=== PATIENT | female | born 1980 | race Caucasian/White ===

== ENCOUNTER → 2023-11-24 12:11 | Outpatient (REF) | payer BC, SELFPAY ==
[2023-11-24 13:02] LABS: Urine Albumin Trace (Neg - Trace); Urine Bilirubin Negative (Negative); Urine Character Clear (Clear); Urine Color Yellow; Urine Glucose Negative (Negative); Urine Ketone Negative (Negative); Urine Leukocyte Negative (Negative); Urine Nitrite Negative (Negative); Urine Occult Blood Negative (Negative); Urine Urobilinogen Negative (Neg - 1+)
[2023-11-24 13:03] LABS: % Basophils 0.7 % (0-2); % Eosinophils 3.4 % (0-6); % Immature Granulocytes 0.3 % (0-0.5); % Lymphocytes 26.2 % (20.5-51.1); % Monocytes 6.4 % (1.7-9.3); Absolute Basophils 0.1 10^3/uL (0-0.2); Absolute Eosinophils 0.2 10^3/uL (0-0.7); Absolute Lymphocytes 1.8 10^3/uL (1.2-3.4); Absolute Monocytes 0.5 10^3/uL (0.1-0.6); Absolute Neutrophils 4.4 10^3/uL (1.4-6.5); Hematocrit 39.6 % (37.0-47.0); Hemoglobin 14.3 g/dL (12.0-16.0); Mean Corp Hgb Conc. 36.1 g/dL (33.0-37.0); Mean Corpuscular Volume 91.5 fL (81.0-99.0); Mean Platelet Volume 10.2 fL (7.4-10.4); Nucleated Red Blood Cells % 0 %; Platelet Count 197 10^3/uL (130-400); Red Blood Cell Count 4.33 10^6/uL (4.20-5.40); Red Cell Dist. Width 11.9 % (11.5-14.5)
[2023-11-24 13:23] LABS: ALT (SGPT) 13 U/L (0-35); AST (SGOT) 21 U/L (14-36); Albumin 4.6 g/dl (3.5-5.0); Alkaline Phosphatase 54 U/L (38-126); Blood Urea Nitrogen 11 mg/dl (7-17); Calcium 9.2 mg/dl (8.4-10.2); Carbon Dioxide 23 mmol/L (22-30); Chloride 102 mmol/L (98-107); Glucose 91 mg/dl (70-99); HDL Cholesterol 52 mg/dl; LDL Cholesterol, Calculated 110 mg/dl; Potassium 4.4 mmol/L (3.5-5.1); Sodium 141 mmol/L (135-145); Total Bilirubin 0.8 mg/dl (0.2-1.3); Total Cholesterol 189 mg/dl (50-199); Triglyceride 136 mg/dl (10-149); Very Low Density Lipoprotein 27 mg/dl (0-30); eGFR > 60.00
== END ==
LOC: REG 12:11
PROVIDERS: ATTENDING PHYSICIAN Family Medicine
DX: Z00.00 Encounter for general adult medical examination without abnormal findings (principal)
CPT/HCPCS: 36415; 80053; 80061; 81003; 83036; 85025

== ENCOUNTER → 2024-11-29 11:31 | Outpatient (REF) | payer BC, SELFPAY ==
[2024-11-29 13:08] LABS: Hematocrit 41.3 % (37.0-47.0); Hemoglobin 14.3 g/dL (12.0-16.0); Mean Corp Hgb Conc. 34.6 g/dL (33.0-37.0); Mean Corpuscular Volume 91.4 fL (81.0-99.0); Nucleated Red Blood Cells % 0 %; Platelet Count 187 10^3/uL (130-400); Red Cell Dist. Width 11.9 % (11.5-14.5)
[2024-11-29 13:33] LABS: Urine Character Clear (Clear)
[2024-11-29 13:34] LABS: ALT (SGPT) 16 U/L (0-35); AST (SGOT) 23 U/L (14-36); Albumin 4.8 g/dl (3.5-5.0); Alkaline Phosphatase 48 U/L (38-126); Blood Urea Nitrogen 9 mg/dl (7-17); Calcium 9.2 mg/dl (8.4-10.2); Carbon Dioxide 26 mmol/L (22-30); Chloride 103 mmol/L (98-107); Glucose 77 mg/dl (70-99); HDL Cholesterol 70 mg/dl; Iron 150 ug/dl (37-170); LDL Cholesterol, Calculated 109 mg/dl; Potassium 4.5 mmol/L (3.5-5.1); Sodium 137 mmol/L (135-145); Total Protein 7.5 g/dl (6.3-8.2); Very Low Density Lipoprotein 25 mg/dl (0-30); eGFR > 60.00
[2024-11-29 13:45] LABS: Total Iron Binding Capacity 360 ug/dl (265-497)
[2024-11-29 13:52] LABS: Vitamin D, 25-OH*** 22.8 ng/mL (30-80)
[2024-11-29 14:00] LABS: Urine Urothelial Cell 0-2 /LPF (FEW)
[2024-11-29 14:01] LABS: Urine Red Blood Cell 0-2 /HPF (0-2)
[2024-11-29 14:09] LABS: Ferritin 23.0 ng/ml (6.24-137)
[2024-11-29 14:26] LABS: Vitamin B12 662 pg/ml (239-931)
[2024-11-30 06:24] LABS: Glycohemoglobin (HgbA1c) 5.1 % (4.0-5.6)
== END ==
LOC: REG 11:31
PROVIDERS: ATTENDING PHYSICIAN Family Medicine
DX: Z13.1 Encounter for screening for diabetes mellitus (principal); Z13.220 Encounter for screening for lipoid disorders; Z13.89 Encounter for screening for other disorder; Z13.0 Encounter for screening for diseases of the blood and blood-forming organs and certain disorders involving the immune mechanism; Z13.29 Encounter for screening for other suspected endocrine disorder; N92.0 Excessive and frequent menstruation with regular cycle; Z78.9 Other specified health status
CPT/HCPCS: 36415; 80053; 80061; 81003; 81015; 82306; 82607; 82728; 83036; 83540; 83550; 84443; 85025